=== PATIENT | male | born 1970 | race African-American/Black ===

== ENCOUNTER 2019-02-10 17:47 | Inpatient (IN) | payer MEDICAID ==
[~2019-02-10] VITALS: Ht 170.2 cm; Wt 99.3 kg
[~2019-02-10 17:47] MED LIST: asa; atenolol; coreg; hydralazine; lasix
[2019-02-10] MEDS ORDERED: ASPIRIN 81MG TABLET PO ONE (18:00)
[2019-02-10 18:41] LABS: BASOPHILS % 1.3 % (0.0-2.0); EOSINOPHILS % 0.9 % (0.0-5.0); HEMATOCRIT. 36.4 % (42.0-52.0); HEMOGLOBIN. 11.7 g/dL (14.0-18.0); LYMPHOCYTES % 14.4 % (20.0-50.0); MEAN CORPUSCULAR HEMOGLOBIN 25.4 pg (28.0-32.0); MEAN CORPUSCULAR VOLUME 79.5 fL (80.0-94.0); MEAN PLATELET VOLUME 7.5 fl (7.4-10.4); MONOCYTES % 10.3 % (2.0-8.0); NEUTROPHILS % 73.1 % (40.0-76.0); PLATELET 217 x1000/uL (130-400); RED BLOOD CELL COUNT 4.58 mill/uL (4.7-6.1); RED CELL DISTRIBUTION WIDTH 20.3 % (11.6-14.6)
[2019-02-10 18:49] LABS: CHLORIDE 103 mEq/L (98-107)
[2019-02-10] MEDS ORDERED: ONDANSETRON HCL 4MG/2ML INJ IV ONE (19:00)
[2019-02-10] MEDS ORDERED: NITROGLYCERIN 0.4MG TABLET SL SL ONE (19:00)
[2019-02-10] MEDS ORDERED: MORPHINE SULFATE 2 MG/ML CPJ (NOT FOR IM USE) IV ONE (19:15)
[2019-02-10] MEDS ORDERED: HYDROCODONE/ACETAMINOPHEN 5/325MG TABLET PO ONE (21:15)
[2019-02-10 23:20] VITALS: BP 137/87
[2019-02-11] VITALS: BP 143/88
[2019-02-11] MEDS ORDERED: ZOLPIDEM TARTRATE 5MG TABLET PO PRN (00:15)
[2019-02-11] MEDS ORDERED: IPRATROPIUM/ALBUTEROL 0.5-3(2.5)MG/3ML NEB HHN PRN (00:15)
[2019-02-11] MEDS ORDERED: ASPI-1393 PO (01:18)
[2019-02-11] MEDS ORDERED: KLUD40 PO (01:18)
[2019-02-11] MEDS ORDERED: BUME0.5T6 PO (01:18)
[2019-02-11] MEDS ORDERED: APIX5TAB PO (01:18)
[2019-02-11] MEDS ORDERED: GABA-529 PO (01:18)
[2019-02-11] MEDS ORDERED: COR6 PO (01:18)
[2019-02-11] MEDS: MORPHINE SULFATE 2 MG/ML CPJ (NOT FOR IM USE) IV PRN ×3 (01:28→09:21)
[2019-02-11 04:00] VITALS: BP 131/88
[2019-02-11] MEDS: GABAPENTIN 100MG CAPSULE PO SCH ×3 (05:20→21:26)
[2019-02-11] MEDS: ONDANSETRON HCL 4MG/2ML INJ IV PRN ×2 (05:20→13:00)
[2019-02-11 05:52] LABS: BASOPHILS % 1.6 % (0.0-2.0); EOSINOPHILS % 1.4 % (0.0-5.0); HEMATOCRIT. 34.9 % (42.0-52.0); HEMOGLOBIN. 11.3 g/dL (14.0-18.0); LYMPHOCYTES % 15.8 % (20.0-50.0); MEAN CORPUSCULAR HEMOGLOBIN 25.9 pg (28.0-32.0); MEAN CORPUSCULAR VOLUME 80.3 fL (80.0-94.0); MEAN PLATELET VOLUME 7.7 fl (7.4-10.4); NEUTROPHILS % 72.2 % (40.0-76.0); PLATELET 193 x1000/uL (130-400); RED BLOOD CELL COUNT 4.35 mill/uL (4.7-6.1); RED CELL DISTRIBUTION WIDTH 20.2 % (11.6-14.6)
[2019-02-11 07:01] LABS: CHLORIDE 105 mEq/L (98-107)
[2019-02-11 07:10] LABS: HDL CHOLESTEROL 32 mg/dL (40-59)
[2019-02-11 07:11] LABS: LDL CHOLESTEROL 44 mg/dL (5-100)
[2019-02-11 08:00] VITALS: BP 136/95
[2019-02-11] MEDS ORDERED: FUROSEMIDE 40MG/4ML VIAL IVP SCH (09:00)
[2019-02-11] MEDS: APIXABAN 5 MG TABLET PO SCH ×2 (09:35→17:05)
[2019-02-11] MEDS: CARVEDILOL 6.25 MG TABLET PO SCH ×2 (09:35→20:35)
[2019-02-11] MEDS: ASPIRIN 81MG TABLET PO SCH (09:35)
[2019-02-11] MEDS: POTASSIUM CHLORIDE 20MEQ TABLET SR PO SCH (09:36)
[2019-02-11 12:00] VITALS: BP 145/98
[2019-02-11] MEDS ORDERED: MORPHINE SULFATE 2 MG/ML CPJ (NOT FOR IM USE) IV SCH (12:30)
[2019-02-11] MEDS: AMLODIPINE 5MG TABLET PO SCH (13:00)
[2019-02-11 16:00] VITALS: BP 120/75
[2019-02-11] MEDS ORDERED: GUAIFENESIN-DM 200MG-20MG/10ML UDC PO PRN (16:00)
[2019-02-11] MEDS ORDERED: HYDROCODONE/ACETAMINOPHEN 10/325MG TABLET PO PRN (16:00)
[2019-02-11] MEDS: METHYLPREDNISOLONE SOD SUCC 40 MG/ML VIAL IV SCH ×2 (17:05→22:28)
[2019-02-11] MEDS: MORPHINE SULFATE 4 MG/ML CPJ (NOT FOR IM USE) IV PRN ×2 (17:07→21:26)
[2019-02-11 20:00] VITALS: BP 90/58
[2019-02-11] MEDS: LEVOTHYROXINE SODIUM 50MCG TABLET PO SCH (20:02)
[2019-02-11] MEDS: ALLOPURINOL 100 MG TABLET PO SCH (20:02)
[2019-02-12] VITALS (7 sets, daily range): BP systolic 112–145; BP diastolic 79–94
[2019-02-12] MEDS: MORPHINE SULFATE 4 MG/ML CPJ (NOT FOR IM USE) IV PRN ×5 (01:31→21:10)
[2019-02-12] MEDS: METHYLPREDNISOLONE SOD SUCC 40 MG/ML VIAL IV SCH ×3 (05:30→21:10)
[2019-02-12] MEDS: LEVOTHYROXINE SODIUM 50MCG TABLET PO SCH (06:24)
[2019-02-12 07:23] LABS: HEMATOCRIT. 35.3 % (42.0-52.0); HEMOGLOBIN. 11.4 g/dL (14.0-18.0); MEAN CORPUSCULAR HEMOGLOBIN 26.1 pg (28.0-32.0); PLATELET 175 x1000/uL (130-400); RED BLOOD CELL COUNT 4.36 mill/uL (4.7-6.1); RED CELL DISTRIBUTION WIDTH 20.3 % (11.6-14.6)
[2019-02-12] MEDS: FUROSEMIDE 40MG/4ML VIAL IV SCH (09:22)
[2019-02-12 10:02] LABS: PLATELET ESTIMATE NORMAL
[2019-02-12] MEDS: ALLOPURINOL 100 MG TABLET PO SCH (10:23)
[2019-02-12] MEDS: POTASSIUM CHLORIDE 20MEQ TABLET SR PO SCH (10:23)
[2019-02-12] MEDS: CARVEDILOL 6.25 MG TABLET PO SCH (10:23)
[2019-02-12] MEDS: AMLODIPINE 5MG TABLET PO SCH ×3 (10:23→17:12)
[2019-02-12] MEDS: APIXABAN 5 MG TABLET PO SCH ×2 (10:23→17:12)
[2019-02-12] MEDS: ASPIRIN 81MG TABLET PO SCH (10:24)
[2019-02-12] MEDS ORDERED: LISI-186 PO (18:28)
[2019-02-12] MEDS ORDERED: APIX5TAB PO (18:28)
[2019-02-12] MEDS ORDERED: LEVO50TA PO (18:29)
[2019-02-12] MEDS ORDERED: FERR-71 PO (18:30)
[2019-02-12] MEDS ORDERED: PRED5TAB PO (18:31)
[2019-02-12] MEDS ORDERED: PANT40TA4 PO (18:32)
[2019-02-12] MEDS ORDERED: ATOR40TA70 PO (18:33)
[2019-02-12] MEDS: ONDANSETRON HCL 4MG/2ML INJ IV PRN ×2 (20:24)
[2019-02-12] MEDS: CARVEDILOL 12.5MG TABLET PO SCH (21:10)
[2019-02-13] VITALS: BP 120/69
[2019-02-13] MEDS: MORPHINE SULFATE 4 MG/ML CPJ (NOT FOR IM USE) IV PRN ×4 (03:07→21:45)
[2019-02-13 04:00] VITALS: BP 125/73
[2019-02-13] MEDS: METHYLPREDNISOLONE SOD SUCC 40 MG/ML VIAL IV SCH ×3 (05:44→21:44)
[2019-02-13] MEDS: LEVOTHYROXINE SODIUM 50MCG TABLET PO SCH (06:30)
[2019-02-13 06:34] LABS: HEMOGLOBIN. 10.8 g/dL (14.0-18.0); MEAN CORPUSCULAR HEMOGLOBIN 25.9 pg (28.0-32.0); MEAN CORPUSCULAR VOLUME 81.5 fL (80.0-94.0); PLATELET 172 x1000/uL (130-400); RED BLOOD CELL COUNT 4.17 mill/uL (4.7-6.1); RED CELL DISTRIBUTION WIDTH 20.3 % (11.6-14.6)
[2019-02-13 08:00] VITALS: BP 129/96
[2019-02-13] MEDS: APIXABAN 5 MG TABLET PO SCH ×2 (09:46→17:37)
[2019-02-13] MEDS: AMLODIPINE 5MG TABLET PO SCH ×2 (09:46→17:37)
[2019-02-13] MEDS: POTASSIUM CHLORIDE 20MEQ TABLET SR PO SCH (09:46)
[2019-02-13] MEDS: CARVEDILOL 12.5MG TABLET PO SCH ×2 (09:46→21:44)
[2019-02-13] MEDS: ASPIRIN 81MG TABLET PO SCH (09:46)
[2019-02-13] MEDS: FUROSEMIDE 40MG/4ML VIAL IV SCH (09:48)
[2019-02-13 10:24] LABS: PLATELET ESTIMATE NORMAL
[2019-02-13 16:00] VITALS: BP 121/77
[2019-02-13 17:18] LABS: CLARITY URINE CLEAR (CLEAR); COLOR URINE YELLOW (YELLOW); KETONES URINE NEGATIVE (NEGATIVE); LEUKOCYTE ESTERASE URINE NEGATIVE (NEGATIVE); NITRITE URINE NEGATIVE (NEGATIVE); OCCULT BLOOD URINE NEGATIVE (NEGATIVE); PH URINE 5.5 (4.5-8.0); PROTEIN URINE NEGATIVE (NEGATIVE); SPECIFIC GRAVITY URINE 1.013 (1.005-1.030)
[2019-02-13] MEDS: ONDANSETRON HCL 4MG/2ML INJ IV PRN (18:47)
[2019-02-13 20:00] VITALS: BP 152/74
[2019-02-14] VITALS: BP 129/72
[2019-02-14] MEDS: MORPHINE SULFATE 4 MG/ML CPJ (NOT FOR IM USE) IV PRN ×4 (02:24→22:23)
[2019-02-14 04:00] VITALS: BP 129/72
[2019-02-14] MEDS: METHYLPREDNISOLONE SOD SUCC 40 MG/ML VIAL IV SCH ×2 (06:22→09:08)
[2019-02-14 06:37] LABS: HEMATOCRIT. 33.6 % (42.0-52.0); HEMOGLOBIN. 10.7 g/dL (14.0-18.0); MEAN CORPUSCULAR HEMOGLOBIN 25.7 pg (28.0-32.0); MEAN CORPUSCULAR VOLUME 80.9 fL (80.0-94.0); MEAN PLATELET VOLUME 7.9 fl (7.4-10.4); PLATELET 174 x1000/uL (130-400); RED BLOOD CELL COUNT 4.16 mill/uL (4.7-6.1); RED CELL DISTRIBUTION WIDTH 20.8 % (11.6-14.6)
[2019-02-14 06:52] LABS: PHOSPHORUS 2.8 mg/dL (2.5-4.9)
[2019-02-14 08:00] VITALS: BP 128/78
[2019-02-14] MEDS: ASPIRIN 81MG TABLET PO SCH (09:06)
[2019-02-14] MEDS: CARVEDILOL 12.5MG TABLET PO SCH ×2 (09:07→22:22)
[2019-02-14] MEDS: POTASSIUM CHLORIDE 20MEQ TABLET SR PO SCH (09:07)
[2019-02-14] MEDS: APIXABAN 5 MG TABLET PO SCH ×2 (09:07→17:09)
[2019-02-14] MEDS: LEVOTHYROXINE SODIUM 50MCG TABLET PO SCH (09:07)
[2019-02-14] MEDS: AMLODIPINE 5MG TABLET PO SCH ×2 (09:07→17:11)
[2019-02-14] MEDS: ONDANSETRON HCL 4MG/2ML INJ IV PRN ×2 (09:08→17:08)
[2019-02-14] MEDS: FUROSEMIDE 40MG/4ML VIAL IV SCH ×2 (09:08→17:09)
[2019-02-14 11:37] LABS: PLATELET ESTIMATE NORMAL
[2019-02-14 20:00] VITALS: BP 116/71
[2019-02-15] VITALS: BP 128/83
[2019-02-15 04:00] VITALS: BP 122/87
[2019-02-15] MEDS: FUROSEMIDE 40MG/4ML VIAL IV SCH ×2 (06:49→17:40)
[2019-02-15 06:59] LABS: HEMATOCRIT. 35.5 % (42.0-52.0); HEMOGLOBIN. 11.3 g/dL (14.0-18.0); MEAN CORPUSCULAR HEMOGLOBIN 25.8 pg (28.0-32.0); MEAN CORPUSCULAR VOLUME 81.2 fL (80.0-94.0); MEAN PLATELET VOLUME 7.9 fl (7.4-10.4); PLATELET 175 x1000/uL (130-400); RED BLOOD CELL COUNT 4.37 mill/uL (4.7-6.1); RED CELL DISTRIBUTION WIDTH 21.1 % (11.6-14.6)
[2019-02-15 07:55] VITALS: BP 124/86
[2019-02-15] MEDS: LEVOTHYROXINE SODIUM 50MCG TABLET PO SCH (08:10)
[2019-02-15] MEDS: PREDNISONE 20MG TABLET PO SCH (08:10)
[2019-02-15] MEDS: ASPIRIN 81MG TABLET PO SCH (08:11)
[2019-02-15] MEDS: CARVEDILOL 12.5MG TABLET PO SCH ×2 (08:20→21:44)
[2019-02-15] MEDS: AMLODIPINE 5MG TABLET PO SCH ×2 (08:20→17:40)
[2019-02-15] MEDS: APIXABAN 5 MG TABLET PO SCH ×2 (08:21→17:39)
[2019-02-15] MEDS: MORPHINE SULFATE 4 MG/ML CPJ (NOT FOR IM USE) IV PRN ×3 (08:29→19:04)
[2019-02-15 12:00] VITALS: BP 126/80
[2019-02-15 16:00] VITALS: BP 94/53
[2019-02-15 20:00] VITALS: BP 111/69
[2019-02-15 22:54] LABS: PLATELET ESTIMATE NORMAL
[2019-02-16] VITALS: BP 117/75
[2019-02-16] MEDS: MORPHINE SULFATE 4 MG/ML CPJ (NOT FOR IM USE) IV PRN ×2 (00:16→05:23)
[2019-02-16 04:00] VITALS: BP 129/84
[2019-02-16] MEDS: FUROSEMIDE 40MG/4ML VIAL IV SCH (06:31)
[2019-02-16] MEDS: LEVOTHYROXINE SODIUM 50MCG TABLET PO SCH (06:31)
[2019-02-16 07:02] LABS: HEMOGLOBIN. 11.2 g/dL (14.0-18.0); MEAN PLATELET VOLUME 7.8 fl (7.4-10.4); PLATELET 187 x1000/uL (130-400); RED BLOOD CELL COUNT 4.32 mill/uL (4.7-6.1); RED CELL DISTRIBUTION WIDTH 20.5 % (11.6-14.6)
[2019-02-16 07:28] LABS: PHOSPHORUS 2.5 mg/dL (2.5-4.9)
[2019-02-16 08:30] VITALS: BP 120/80
[2019-02-16] MEDS: PREDNISONE 20MG TABLET PO SCH (08:36)
[2019-02-16] MEDS: ASPIRIN 81MG TABLET PO SCH (08:37)
[2019-02-16] MEDS: CARVEDILOL 12.5MG TABLET PO SCH (08:37)
[2019-02-16] MEDS: AMLODIPINE 5MG TABLET PO SCH (08:37)
[2019-02-16] MEDS: APIXABAN 5 MG TABLET PO SCH (08:37)
[2019-02-16 08:54] VITALS: BP 120/80
[2019-02-16 10:32] LABS: PLATELET ESTIMATE NORMAL
== END 2019-02-16 10:46 | disposition home or self-care (01) | DRG 198 ==
LOC: ER 17:47 → 6WST 19:03 → ENRESERV 21:57
PROVIDERS: ADMIT Internal Medicine; ATTEND Internal Medicine
PROC: 5A09357 Assistance with Respiratory Ventilation, Less than 24 Consecutive Hours, Continuous Positive Airway Pressure (ICD-10-PCS; principal; 2019-02-11)
DX: I24.8 Other forms of acute ischemic heart disease (principal); I50.43 Acute on chronic combined systolic (congestive) and diastolic (congestive) heart failure; J81.1 Chronic pulmonary edema; E44.0 Moderate protein-calorie malnutrition; D68.59 Other primary thrombophilia; I31.3 Pericardial effusion (noninflammatory); I08.1 Rheumatic disorders of both mitral and tricuspid valves; N18.3 Chronic kidney disease, stage 3 (moderate); M10.40 Other secondary gout, unspecified site; I42.9 Cardiomyopathy, unspecified; I13.0 Hypertensive heart and chronic kidney disease with heart failure and stage 1 through stage 4 chronic kidney disease, or unspecified chronic kidney disease; D64.9 Anemia, unspecified; E03.9 Hypothyroidism, unspecified; E66.9 Obesity, unspecified; E78.5 Hyperlipidemia, unspecified; I48.91 Unspecified atrial fibrillation; M10.9 Gout, unspecified; E87.5 Hyperkalemia; Z82.49 Family history of ischemic heart disease and other diseases of the circulatory system; Z86.73 Personal history of transient ischemic attack (TIA), and cerebral infarction without residual deficits; Z79.899 Other long term (current) drug therapy; Z79.01 Long term (current) use of anticoagulants; Z95.810 Presence of automatic (implantable) cardiac defibrillator; Z88.8 Allergy status to other drugs, medicaments and biological substances; Z79.82 Long term (current) use of aspirin; Z71.3 Dietary counseling and surveillance; Z68.34 Body mass index [BMI] 34.0-34.9, adult
CPT/HCPCS: 36415; 71045; 76770; 80048; 80061; 81003; 82550; 83735; 83880; 84100; 84484; 84550; 93005; 93306; 94660; 96374; 96375; 99285; J1940; J2270; J2405; J2920; J7512; J7620

== ENCOUNTER 2021-10-02 08:07 | Inpatient (IN) | payer MEDICAID ==
[~2021-10-02] VITALS: Ht 170.2 cm; Wt 94.0 kg
[~2021-10-02 08:07] MED LIST changes: +APIX5TAB PO; +ASPI-1497 PO; +ATOR40TA70 PO; +BUME0.5T6 PO; +COR6 PO; +FERR-71 PO; +KLUD40 PO; +LEVO50TA PO; +LISI-186 PO; +PANT40TA51 PO; +PRED5TAB PO; -asa; -atenolol; -coreg; -hydralazine; -lasix
[2021-10-02] MEDS ORDERED: ONDANSETRON HCL 4MG/2ML INJ IV STA (08:30)
[2021-10-02] MEDS ORDERED: NITROGLYCERIN OINT 1GM/INCH UDPKT TD ONE (08:30)
[2021-10-02] MEDS ORDERED: MORPHINE SULFATE 4 MG/ML CPJ (NOT FOR IM USE) IV STA (08:30)
[2021-10-02 09:12] LABS: BASOPHILS % 1.1 % (0.0-2.0); EOSINOPHILS % 1.6 % (0.0-5.0); HEMATOCRIT. 34.2 % (42.0-52.0); HEMOGLOBIN. 11.1 g/dL (14.0-18.0); LYMPHOCYTES % 8.9 % (20.0-50.0); MEAN CORPUSCULAR HEMOGLOBIN 27.7 pg (28.0-32.0); MEAN CORPUSCULAR VOLUME 85.6 fL (80.0-94.0); MEAN PLATELET VOLUME 7.3 fl (7.4-10.4); MONOCYTES % 6.1 % (2.0-8.0); NEUTROPHILS % 82.3 % (40.0-76.0); PLATELET 296 x1000/uL (130-400); RED CELL DISTRIBUTION WIDTH 18.6 % (11.6-14.6)
[2021-10-02 09:23] LABS: CHLORIDE 108 mEq/L (98-107)
[2021-10-02] MEDS ORDERED: MORPHINE SULFATE 2 MG/ML CPJ (NOT FOR IM USE) IV ONE (11:00)
[2021-10-02 13:24] LABS: *AMPHETAMINES SCREEN URINE NEGATIVE (NEGATIVE); *BARBITURATES SCREEN URINE NEGATIVE (NEGATIVE); *BENZODIAZEPINES SCREEN URINE NEGATIVE (NEGATIVE); *COCAINE SCREEN URINE NEGATIVE (NEGATIVE); CANNABINOID URINE SCREEN NEGATIVE (NEGATIVE); METHADONE URINE SCREEN NEGATIVE (NEGATIVE); OPIATES URINE SCREEN PRESUMTIVE POSITIVE (NEGATIVE); PHENCYCLIDINE URINE SCREEN NEGATIVE (NEGATIVE)
[2021-10-02] MEDS ORDERED: ACETAMINOPHEN 325MG TABLET PO PRN (13:45)
[2021-10-02] MEDS ORDERED: HYDROCODONE/APAP 7.5/325MG 1 TAB TABLET PO PRN (13:45)
[2021-10-02] MEDS ORDERED: ONDANSETRON HCL 4MG/2ML INJ IV PRN (13:45)
[2021-10-02] MEDS ORDERED: CLONIDINE 0.2MG TABLET PO PRN (14:00)
[2021-10-02 16:00] VITALS: BP 148/91
[2021-10-02] MEDS ORDERED: FURO80TA87 MT (16:19)
[2021-10-02] MEDS ORDERED: FURO-151 PO (16:19)
[2021-10-02 16:28] VITALS: BP 145/90
[2021-10-02] MEDS: MORPHINE SULFATE 2 MG/ML CPJ (NOT FOR IM USE) IV PRN ×2 (16:54→20:32)
[2021-10-02] MEDS ORDERED: APIXABAN 5 MG TABLET PO SCH (17:45)
[2021-10-02 20:07] VITALS: BP 144/88
[2021-10-02] MEDS: ATORVASTATIN CALCIUM 40MG TABLET PO SCH (20:30)
[2021-10-02] MEDS: CARVEDILOL 6.25 MG TABLET PO SCH (20:31)
[2021-10-02] MEDS ORDERED: NALOXONE HCL 0.4MG/ML VIAL IV PRN (21:30)
[2021-10-03] VITALS: BP 127/83
[2021-10-03] MEDS: MORPHINE SULFATE 2 MG/ML CPJ (NOT FOR IM USE) IV PRN ×3 (00:52→11:06)
[2021-10-03 04:00] VITALS: BP 131/84
[2021-10-03 06:17] LABS: EOSINOPHILS % 2.2 % (0.0-5.0); HEMATOCRIT. 32.8 % (42.0-52.0); HEMOGLOBIN. 10.8 g/dL (14.0-18.0); MEAN CORPUSCULAR HEMOGLOBIN 27.8 pg (28.0-32.0); MEAN CORPUSCULAR VOLUME 84.3 fL (80.0-94.0); MEAN PLATELET VOLUME 7.5 fl (7.4-10.4); MONOCYTES % 6.8 % (2.0-8.0); PLATELET 260 x1000/uL (130-400); RED BLOOD CELL COUNT 3.89 mill/uL (4.7-6.1); RED CELL DISTRIBUTION WIDTH 18.8 % (11.6-14.6)
[2021-10-03] MEDS: PANTOPRAZOLE 40MG DR TABLET PO SCH (06:22)
[2021-10-03] MEDS: LEVOTHYROXINE SODIUM 50MCG TABLET PO SCH (06:22)
[2021-10-03 07:29] LABS: PHOSPHORUS 3.6 mg/dL (2.5-4.9)
[2021-10-03 07:42] VITALS: BP 140/84
[2021-10-03] MEDS: FUROSEMIDE 40MG/4ML VIAL IVP SCH ×2 (08:30→16:26)
[2021-10-03] MEDS: POTASSIUM CHLORIDE 20MEQ TABLET SR PO SCH (08:31)
[2021-10-03] MEDS: CARVEDILOL 6.25 MG TABLET PO SCH ×2 (08:31→21:10)
[2021-10-03] MEDS: LISINOPRIL 10MG TABLET PO SCH (08:32)
[2021-10-03] MEDS: ASPIRIN 81MG EC TABLET PO SCH (08:32)
[2021-10-03] MEDS ORDERED: ENOXAPARIN 40MG/0.4ML SYR SUBCUT SCH (09:00)
[2021-10-03 11:56] VITALS: BP 131/77
[2021-10-03] MEDS: APIXABAN 5 MG TABLET PO SCH ×2 (12:12→16:27)
[2021-10-03] MEDS ORDERED: DIPHENHYDRAMINE 25MG CAPSULE PO PRN (13:15)
[2021-10-03 15:48] VITALS: BP 139/85
[2021-10-03] MEDS: HYDROCODONE/ACETAMINOPHEN 5/325MG TABLET PO PRN ×2 (16:27→21:10)
[2021-10-03] MEDS: PREDNISONE 20MG TABLET PO SCH (16:27)
[2021-10-03 20:00] VITALS: BP 129/77
[2021-10-03] MEDS: ATORVASTATIN CALCIUM 40MG TABLET PO SCH (21:10)
[2021-10-03] MEDS: COLCHICINE 0.6MG TABLET PO SCH (21:10)
[2021-10-04] VITALS: BP 126/72
[2021-10-04] MEDS ORDERED: ACETAMINOPHEN 325MG TABLET PO PRN (00:45)
[2021-10-04] MEDS: HYDROCODONE/ACETAMINOPHEN 5/325MG TABLET PO PRN ×5 (01:43→23:15)
[2021-10-04 04:00] VITALS: BP 132/79
[2021-10-04] MEDS: FUROSEMIDE 40MG/4ML VIAL IVP SCH (06:10)
[2021-10-04] MEDS: PANTOPRAZOLE 40MG DR TABLET PO SCH (06:10)
[2021-10-04] MEDS: LEVOTHYROXINE SODIUM 50MCG TABLET PO SCH (06:10)
[2021-10-04 08:00] VITALS: BP 138/83
[2021-10-04] MEDS: PREDNISONE 20MG TABLET PO SCH (08:43)
[2021-10-04] MEDS: ASPIRIN 81MG EC TABLET PO SCH (08:44)
[2021-10-04] MEDS: LISINOPRIL 10MG TABLET PO SCH (08:44)
[2021-10-04] MEDS: CARVEDILOL 6.25 MG TABLET PO SCH ×2 (08:44→21:15)
[2021-10-04] MEDS: COLCHICINE 0.6MG TABLET PO SCH ×2 (08:44→21:17)
[2021-10-04] MEDS: POTASSIUM CHLORIDE 20MEQ TABLET SR PO SCH (08:44)
[2021-10-04] MEDS: APIXABAN 5 MG TABLET PO SCH ×2 (08:44→16:18)
[2021-10-04 12:00] VITALS: BP 131/79
[2021-10-04 15:42] VITALS: BP 135/74
[2021-10-04] MEDS: METHYLPREDNISOLONE SOD SUCC 40 MG/ML VIAL IV SCH ×2 (16:17→21:15)
[2021-10-04 20:00] VITALS: BP 138/80
[2021-10-04] MEDS: ATORVASTATIN CALCIUM 40MG TABLET PO SCH (21:14)
[2021-10-04] MEDS: FUROSEMIDE 40MG TABLET PO SCH (21:14)
[2021-10-05] VITALS: BP 140/74
[2021-10-05 04:00] VITALS: BP 138/72
[2021-10-05] MEDS: FAMOTIDINE 20MG TABLET PO SCH ×2 (06:16→17:01)
[2021-10-05] MEDS: LEVOTHYROXINE SODIUM 50MCG TABLET PO SCH (06:16)
[2021-10-05] MEDS: METHYLPREDNISOLONE SOD SUCC 40 MG/ML VIAL IV SCH ×3 (06:16→21:02)
[2021-10-05 08:00] VITALS: BP 133/89
[2021-10-05] MEDS: APIXABAN 5 MG TABLET PO SCH ×2 (08:17→17:01)
[2021-10-05] MEDS: CARVEDILOL 6.25 MG TABLET PO SCH ×2 (08:17→21:02)
[2021-10-05] MEDS: ASPIRIN 81MG EC TABLET PO SCH (08:17)
[2021-10-05] MEDS: FUROSEMIDE 40MG TABLET PO SCH ×2 (08:18→21:00)
[2021-10-05] MEDS: LISINOPRIL 10MG TABLET PO SCH (08:18)
[2021-10-05] MEDS: POTASSIUM CHLORIDE 20MEQ TABLET SR PO SCH (08:24)
[2021-10-05] MEDS: COLCHICINE 0.6MG TABLET PO SCH ×2 (08:31→21:00)
[2021-10-05] MEDS ORDERED: P20 MT (11:49)
[2021-10-05 12:00] VITALS: BP 139/80
[2021-10-05] MEDS: GABAPENTIN 100MG CAPSULE PO SCH ×2 (13:24→21:04)
[2021-10-05 15:59] VITALS: BP 126/81
[2021-10-05 20:00] VITALS: BP 133/87
[2021-10-05] MEDS: ATORVASTATIN CALCIUM 40MG TABLET PO SCH (21:00)
[2021-10-05] MEDS: HYDROCODONE/ACETAMINOPHEN 5/325MG TABLET PO PRN (21:01)
[2021-10-06] VITALS: BP 134/77
[2021-10-06 04:00] VITALS: BP 126/78
[2021-10-06] MEDS: GABAPENTIN 100MG CAPSULE PO SCH (05:50)
[2021-10-06] MEDS: METHYLPREDNISOLONE SOD SUCC 40 MG/ML VIAL IV SCH (05:50)
[2021-10-06] MEDS: FAMOTIDINE 20MG TABLET PO SCH (06:41)
[2021-10-06] MEDS: LEVOTHYROXINE SODIUM 50MCG TABLET PO SCH (06:41)
[2021-10-06 08:00] VITALS: BP 124/79
[2021-10-06] MEDS: LISINOPRIL 10MG TABLET PO SCH (08:20)
[2021-10-06] MEDS: POTASSIUM CHLORIDE 20MEQ TABLET SR PO SCH (08:20)
[2021-10-06] MEDS: APIXABAN 5 MG TABLET PO SCH (08:21)
[2021-10-06] MEDS: ASPIRIN 81MG EC TABLET PO SCH (08:21)
[2021-10-06] MEDS: COLCHICINE 0.6MG TABLET PO SCH (08:21)
[2021-10-06] MEDS: CARVEDILOL 6.25 MG TABLET PO SCH (08:21)
[2021-10-06] MEDS: FUROSEMIDE 40MG TABLET PO SCH (08:21)
[2021-10-06 10:45] VITALS: BP 124/79
== END 2021-10-06 12:42 | disposition home or self-care (01) | DRG 194 ==
LOC: ER 08:20 → 8WST 11:01 → EDBEDREQ 11:05 → ENRESERV 14:51
PROVIDERS: ADMIT Internal Medicine; ATTEND Internal Medicine
DX: I13.0 Hypertensive heart and chronic kidney disease with heart failure and stage 1 through stage 4 chronic kidney disease, or unspecified chronic kidney disease (principal); E44.1 Mild protein-calorie malnutrition; N17.9 Acute kidney failure, unspecified; I42.9 Cardiomyopathy, unspecified; E87.8 Other disorders of electrolyte and fluid balance, not elsewhere classified; I50.23 Acute on chronic systolic (congestive) heart failure; N18.9 Chronic kidney disease, unspecified; I48.20 Chronic atrial fibrillation, unspecified; M10.9 Gout, unspecified; R07.89 Other chest pain; E66.9 Obesity, unspecified; E78.5 Hyperlipidemia, unspecified; D64.9 Anemia, unspecified; E03.9 Hypothyroidism, unspecified; I25.10 Atherosclerotic heart disease of native coronary artery without angina pectoris; Z86.73 Personal history of transient ischemic attack (TIA), and cerebral infarction without residual deficits; Z95.810 Presence of automatic (implantable) cardiac defibrillator; Z87.891 Personal history of nicotine dependence; Z68.32 Body mass index [BMI] 32.0-32.9, adult; Z88.6 Allergy status to analgesic agent; Z88.8 Allergy status to other drugs, medicaments and biological substances; Z79.899 Other long term (current) drug therapy; Z79.52 Long term (current) use of systemic steroids; Z79.82 Long term (current) use of aspirin; Z71.3 Dietary counseling and surveillance
CPT/HCPCS: 36415; 71045; 80048; 80053; 80076; 80305; 83735; 83880; 84100; 84443; 84484; 85025; 93005; 93306; 99285; J1650; J1940; J2270; J2405; J2920; J7512